=== PATIENT | male | born 1985 | race African-American/Black ===

== ENCOUNTER 2024-07-27 02:57 | Emergency (ER) | payer MEDICAID ==
[~2024-07-27] VITALS: Ht 185.4 cm; Wt 83.0 kg
[2024-07-27 03:24] VITALS: O2SAT 98
[2024-07-27] MEDS: BACITRACIN ZINC OINT UDPKT TOP ONE (04:30)
[2024-07-27] MEDS: TETANUS, DIPHTHERIA, PERTUSSIS VAC/PF 0.5ML (>10YR OLD) IM ONE (04:30)
[2024-07-27] MEDS: IBUPROFEN 600MG TABLET PO ONE (04:30)
[2024-07-27] MEDS: LIDOCAINE HCL/PF 1% 10 MG/ML 5ML VIAL INFIL ONE (04:30)
[2024-07-27 05:11] VITALS: BP 129/84; PULSE 64; RESP 18; TEMP 36.7; O2SAT 99
== END 2024-07-27 05:12 | disposition home or self-care (01) ==
LOC: ER 02:57
DX: S01.111A Laceration without foreign body of right eyelid and periocular area, initial encounter (principal); Z88.0 Allergy status to penicillin; Y28.8XXA Contact with other sharp object, undetermined intent, initial encounter; Y93.89 Activity, other specified; Y92.89 Other specified places as the place of occurrence of the external cause; Y99.8 Other external cause status
CPT/HCPCS: 12011; 99282; J2003; Z7610; 99283